=== PATIENT | male | born 1995 | race Two or more races ===

== ENCOUNTER 2020-08-21 05:09 | Emergency (ER) | payer OTHER ==
[~2020-08-21] VITALS: Ht 167.6 cm; Wt 70.0 kg
[2020-08-21 06:44] LABS: BASOPHILS % (AUTO) 0 % (0-1); EOSINOPHILS % (AUTO) 0 % (1-7); LYMPHOCYTES % (AUTO) 8 % (22-44); MEAN CORPUSCULAR HEMOGLOBIN 29.8 pg (27.5-34.5); MEAN CORPUSCULAR HGB CONC 33.2 g/dL (33.2-36.2); MEAN PLATELET VOLUME 8.3 fL (7.4-10.4); MONOCYTES % (AUTO) 5 % (2-9); NEUTROPHILS % (AUTO) 87 % (42-75); PLATELET COUNT 340 x10^3/uL (130-400); RED BLOOD COUNT 4.63 x10^6/uL (4.38-5.82); RED CELL DISTRIBUTION WIDTH 14.2 % (9.4-14.8)
[2020-08-21 06:52] LABS: MD NO
--- NOTE | 2020-08-21 06:53 | NUR ---
REC'D REPORT FROM MORIAH VARGAS [employer] TRANSL[employer]. PT RESTING IN BED. VSS. APPEARS IN NO ACUTE DISTRESS.
--- NOTE | 2020-08-21 06:53 | NUR ---
Report given to MORIAH Sanchez.
[2020-08-21 06:56] LABS: ALANINE AMINOTRANSFERASE 50 U/L (12-78); ALBUMIN 4.5 g/dL (3.4-5.0); ANION GAP 6 mmol/L (5-15); CHLORIDE 104 mmol/L (98-107); CREATININE 0.75 mg/dL (0.7-1.3)
[2020-08-21 06:58] LABS: ALKALINE PHOSPHATASE 91 U/L (45-117); BILIRUBIN,TOTAL 0.6 mg/dL (0.2-1.0); TOTAL PROTEIN 7.6 g/dL (6.4-8.2)
--- NOTE | 2020-08-21 07:03 | NUR ---
PT AMBULATES TO BATHROOM
--- NOTE | 2020-08-21 08:31 | NUR ---
pt given crackers, soda, and peanut butter. vss. pt sitting up in bed eating. appears in no acute distress. still does not answer most questions.
--- NOTE | 2020-08-21 09:50 | NUR ---
PT RESTING IN BED. MORE SNACKS GIVEN TO PT
--- NOTE | 2020-08-21 10:21 | NUR ---
PT GIVEN MORE SNACKS. STILL NOT RESPONDING TO QUESTIONS. VSS
--- NOTE | 2020-08-21 11:05 | NUR ---
PT CONTINUES TO HAVE SHIFTY EYES AND DOES NOT REPLY TO QUESTIONS. STILL APPEARS UNDER THE INFLUENCE.
--- NOTE | 2020-08-21 11:51 | NUR ---
report given to twila salgado
--- NOTE | 2020-08-21 12:01 | NUR ---
PT RESTING IN BK RAMOS NOTED AT THIS TIME. PT STILL NOT ANSWERING QUESTIONS.
[2020-08-21 12:09] VITALS: BP 136/88
[2020-08-21] MEDS ORDERED: SODIUM CHLORIDE 0.9% 1,000ML IVBOLUS ONE (12:30)
[2020-08-21 13:08] LABS: SALICYLATE LEVEL 2.2 mg/dL (2.8-20.0)
--- NOTE | 2020-08-21 14:09 | NUR ---
PT AMBULATING STEADILY TO CHARGE DESK ASKING TO LEAVE. PER UMBERTO OROZCO PT IS OKAY TO BE DC'D WITHOUT UDS. DC INSTRUCTIONS GIVEN, PT VERBALIZED UNDERSTANDING. PT AMBULATED STEADILY TO LOBBY.
== END 2020-08-21 14:10 | disposition home or self-care (01) ==
LOC: ED 13:59
DX: G93.40 Encephalopathy, unspecified (principal); F10.10 Alcohol abuse, uncomplicated; R00.9 Unspecified abnormalities of heart beat; R41.82 Altered mental status, unspecified; Y90.0 Blood alcohol level of less than 20 mg/100 ml
CPT/HCPCS: 36415; 70450; 71045; 80053; 80299; 80320; 80329; 85025; 99285; G0480